=== PATIENT | male | born 1950 | race Caucasian/White ===

== ENCOUNTER 2023-09-24 09:18 | Inpatient (IN) | payer MEDICARE, OTHER ==
[~2023-09-24] VITALS: Ht 167.6 cm; Wt 72.3 kg
[2023-09-24] VITALS (11 sets, daily range): BP systolic 90–117; BP diastolic 44–88
[~2023-09-24 09:18] MED LIST: NICOTINE PATCH1 EAC1 TD; TERBINAFINE15 GM TOP
[2023-09-24] MEDS ORDERED: ALBUTEROL SULFATE 0.5% 2.5 MG/0.5 ML VIAL INH ONE (09:30)
[2023-09-24 09:46] LABS: BASOPHILS 0.3 % (0-2); HEMATOCRIT 45.2 % (35.0-50.0); HEMOGLOBIN 15.2 g/dL (12.0-18.0); LYMPHOCYTES 6.7 % (24-44); MCH 31.3 (27-36); MCHC 33.5 g/dl (30-36); MCV 93.4 fl (81-99); MONOCYTES 5.3 % (0-12); NEUTROPHILS 87.7 % (39-80); PLATELET COUNT 149 K/uL (140-440); RBC 4.84 M/ul (4.3-5.7); RDW 13.5 (10.5-15.0)
[2023-09-24 10:07] LABS: ALBUMIN 2.9 g/dL (3.4-5.0); ALBUMIN/GLOBULIN RATIO 0.76 (1.1-2.4); ANION GAP 15.3 (7-21); BILIRUBIN, TOTAL 0.5 ng/dL (0.2-1.0); CALCIUM 8.6 mg/dL (8.5-10.1); CREATININE, SERUM 1.1 mg/dL (0.70-1.30); POTASSIUM 3.3 mmol/L (3.5-5.1); PROTEIN, TOTAL 6.7 g/dL (6.4-8.2)
[2023-09-24 10:25] LABS: INFLUENZA B NAA NEGATIVE (NEGATIVE); RESPIRATORY SYNCYTIAL VIR NAA NEGATIVE (NEGATIVE)
[2023-09-24] MEDS ORDERED: NICOTINE 14 MG/24 HR 1 EA TDSY TD ONE (10:30)
[2023-09-24] MEDS ORDERED: methylPREDNISolone SOD SUCC 125 MG/2 ML VIAL IV ONE (11:00)
[2023-09-24] MEDS ORDERED: OSELTAMIVIR PHOSPHATE 75 MG CAP PO ONE (13:00)
[2023-09-24] MEDS ORDERED: ENOXAPARIN SODIUM 40 MG/0.4 ML SYR SUB-Q SCH (14:04)
--- NOTE | 2023-09-24 14:34 | NUR ---
PT TRANFERED TO CCU VIA STRETCHER ON 2L NC. PT AMBULATED INDEPENDENTLY FROM STRETCHER TO BED, RT IN ROOM PLACED PT ON VAPOTHERM AT 30L AND 30%. PT PLACED ON MONITOR. O2 SAT 96%. RR 30. WHEEZES HEARD THROUGHOUT BILATERAL LUNGS. PT STATES HE DOES NOT HAVE PRIMARY CARE OR PRESCRIBED MEDICATIONS. STATES HE IS FREQUENTLY SOB WITH DIFFICULTY WITH ADLS AT TIMES. PT ORIENTED TO ROOM AND CALL LIGHT, VERABLIZED UNDERSTANDING. PT DENIES FURTHER NEEDS AT THIS TIME. CALL LIGHT IN REACH.
[2023-09-24] MEDS ORDERED: ACETAMINOPHEN 325 MG TAB PO PRN (14:45)
[2023-09-24] MEDS ORDERED: ALBUTEROL SULFATE 0.083% 3 ML VIAL INH PRN (14:45)
--- NOTE | 2023-09-24 15:50 | NUR ---
PT SITTING UP IN BED, RR 22, REMAINS ON VAPOTHERM 30 AND 30%. PT DENIES NEEDS AT THIS TIME. CALL LIGHT IN REACH.
[2023-09-24] MEDS ORDERED: ALBUTEROL/IPRATROPIUM 3 ML NEB INH SCH (16:00)
--- NOTE | 2023-09-24 17:07 | NUR ---
PT RR 47, PT WORK OF BREATHING APPEARS INCREASED, RT CALLED, INSTRUCTED RN TO INCREASE VAPOTHERM TO 35L/MIN. LITER FLOW INCREASED.
--- NOTE | 2023-09-24 17:19 | NUR ---
RR CONTINUES 45, WORK OF BREATHING LABORED. RT INSTRUCTED THIS RN TO INCREASED LITER FLOW TO 40L/MIN. LITER FLOW INCREASED.
--- NOTE | 2023-09-24 17:40 | NUR ---
DR LOU IN ROOM TO SEE PATIENT AND DISCUSS PLAN OF CARE WITH PATIENT, THIS RN AND ROSLYN RN. DISCUSSION AND EDUCATION PROVIDED TO PT FOR BIPAP. PT AGREEABLE TO BIPAP. ALSO SPOKE WITH DR LOU REAGARDING REQUEST FOR LABS INCLUDING ABG AND MAG, VERBAL ORDERS GIVEN. ORDERS GIVEN FOR 40 MEQ OF POTASSIUM REPLACEMENT AND IV FLUIDS, SEE ORDERS. INFORMED DR LOU OF NO URINE OUTPUT BETWEEN ER AND CCU, DR LOU ACKNOWLEDGED WITH NO FURTHER ORDERS AT THIS TIME.
--- NOTE | 2023-09-24 18:15 | NUR ---
BLADDER SCAN OF 135ML
[2023-09-24] MEDS ORDERED: POTASSIUM CHLORIDE 10 MEQ/100 ML BAG IV ONE (18:30)
[2023-09-24] MEDS ORDERED: SODIUM CHLORIDE 0.9% 1,000 ML IV SCH (18:45)
[2023-09-24 18:50] LABS: MAGNESIUM 1.4 mg/dL (1.8-2.4); PHOSPHORUS, INORGANIC 3.2 mg/dL (2.5-4.9)
--- NOTE | 2023-09-24 19:58 | NUR ---
SBAR REPORT RECEIVED FROM AMANDA MESSINA. PATIENT KAI IS NOTED TO BE CALM AND COOPERATIVE. HE ENDORSES COMFORT ON BIPAP MACHINE. POTASSIUM REPLACEMENT BAG 1:2 CURRENTLY INFUSING. VSS AND WDL PER MONITOR. SAFETY CHECK PERFORMED.
--- NOTE | 2023-09-24 20:22 | NUR ---
PATIENT KAI NOW ON VAPOTHERM 30L/ 25% AND ENDORSES COMFORT. HE IS ABLE TO SWALLOW PILLS WHOLE WITH WATER. VASCULAR ACCESS PATENT AND INTACT. HE IS NOTED TO BE TREMULOUS IN HIS UPPER EXTREMITIES WHICH PATIENT STATES IS UNUSUAL. MED EDUCATION PROVIDED
--- NOTE | 2023-09-24 20:34 | NUR ---
DISCUSSED PATIENT LAB FINDINGS WITH . ORDERED RECEIVED FOR MAG REPLACEMENT. VERIFIED VIA REPEAT BACK.
[2023-09-24] MEDS ORDERED: MAGNESIUM SULFATE 2 GM/50 ML BAG IV ONE (20:45)
[2023-09-24] MEDS ORDERED: OSELTAMIVIR PHOSPHATE 75 MG CAP PO SCH (21:00)
[2023-09-24] MEDS ORDERED: MELATONIN 3 MG TAB PO PRN (21:00)
[2023-09-24] MEDS ORDERED: methylPREDNISolone SOD SUCC 40 MG/ML VIAL IV SCH (21:00)
[2023-09-24] MEDS ORDERED: SENNOSIDES/DOCUSATE 1 EA TAB PO SCH (21:00)
--- NOTE | 2023-09-24 23:00 | EKG ---
[facility] [address] [facility] [place], [place] [address] Signed Sinus tachycardia Nonspecific ST abnormality Confirmed by Sarabjit Lou M.D. ([id number]) on 09/24/2023 11:00:09 PM Electronically Signed By: SARABJIT LOU MD 09/24/23 2300 PATIENT NAME: KAT QUINN Electrocardiogram DATE OF : 50 PHYSICIAN: SARABJIT LOU MD REPORT #: [id number] REPORT IS CONFIDENTIAL AND NOT TO BE RELEASED WITHOUT AUTHORIZATION
[2023-09-24] MEDS ORDERED: AZITHROMYCIN 500 MG in DEXTROSE 5% 250 ML IV SCH (23:15)
[2023-09-25] VITALS (20 sets, daily range): BP systolic 93–136; BP diastolic 44–72
[2023-09-25] MEDS ORDERED: AZITHROMYCIN 500 MG VIAL ONE (00:30)
--- NOTE | 2023-09-25 02:18 | NUR ---
TRIAL OFF HFNC ON RA 90 TO 91%, WE WILL TRIAL 2 LPM AND IS CURRENTLY 94%. Q2 TREATMENT DONE SO FAR THIS SHIFT.
--- NOTE | 2023-09-25 03:55 | NUR ---
PATIENT KAT REMAINS PLEASANT AND COOPERATIVE. 02 93% ON NASAL CANNULA. HE DENIES ANY PAIN, NEEDS, OR DESIRES AT THIS TIME. KAT HAS BEEN INTERMITTENTLY RESTING THIS EVENING.
--- NOTE | 2023-09-25 03:57 | NUR ---
NC ON SIDE OF FACE AND HE WAS 89 TO 90%. REPLACED O2 AT 2 LPM AND IS NOW 95%.
--- NOTE | 2023-09-25 05:40 | NUR ---
BIPAP REMAINS IN USE. 05/03, BACKUP RATE 14, 35%. RR HAVE BEEN NOTED TO STAY BETWEEN 12-18. RASS -1, ABLE TO NOD YES/NO TO ORIENTATION QUESTIONS. RT UPDATED
[2023-09-25 05:47] LABS: HEMATOCRIT 41.4 % (35.0-50.0); HEMOGLOBIN 13.6 g/dL (12.0-18.0); MCH 30.8 (27-36); MCHC 32.8 g/dl (30-36); MCV 93.8 fl (81-99); PLATELET COUNT 160 K/uL (140-440); RBC 4.42 M/ul (4.3-5.7); RDW 14.2 (10.5-15.0)
[2023-09-25 05:59] LABS: ANION GAP 13.2 (7-21); BANDS, MANUAL DIFF 33; BUN/CREATININE RATIO 18.03 (6.0-28.6); CALCIUM 8.4 mg/dL (8.5-10.1); CREATININE, SERUM 1.22 mg/dL (0.70-1.30); LYMPHOCYTES, MANUAL DIFF 9; MONOCYTES, MANUAL DIFF 1; NEUTROPHILS, MANUAL DIFF 57; POTASSIUM 3.2 mmol/L (3.5-5.1)
--- NOTE | 2023-09-25 07:30 | NUR ---
REPORT RECEIVED AND CARE ASSUMED FROM AMANDA MACKEY. PT VSS PER CONTINUOUS MONITOR.
[2023-09-25] MEDS ORDERED: POTASSIUM CHLORIDE 20 MEQ/15 ML CUP PO SCH (08:00)
--- NOTE | 2023-09-25 08:00 | NUR ---
SHIFT ASSESSMENT COMPLETE. SEE [facility] FOR DETAILS. PT CONSUMED 25% OF BREAKFAST. PT OFFERED AND DECLINED ADDITIONAL FOOD OPTIONS. PT ASSISTED TO AND FROM THE BATHROOM WITH RN ASSIST ON 2L NC. WHEN RETURN TO BED COMPLETE PT COMPLAINT OF SOB AND TIREDNESS. PT O2 SAT 89% ON 2L NC. O2 INCREASED TO 3L NC. PT SAT INCREASED TO 97%. PT RR 18. NO RESP DISTRESS VISUALIZED. PT PLACED BACK ON 2L NC. PT SAT REMAINS >94%. PT REQUESTED AND PROVIDED NEW URINAL. SMALL, CONTINENT BM NOTED. PT DENIES ADITIONAL NEEDS AT THIS TIME. CALL LIGHT IN REACH. PT VERBALIZES UNDERSTANDING TO USE CALL LIGHT WITH NEEDS. BED IN LOW, LOCKED POSITION WITH BED ALARM ON FOR PT SAFETY.
--- NOTE | 2023-09-25 08:23 | NUR ---
UR CLINCIAL REVIEW 2 [place] RULE FOR [facility] IP 09/24/23 @ 1403 ORDER MATCHES NO AUTH REQUIRED PER MEDICARE DISCHARGE DISPOSITION PENDING. PATIENT REQUIRING BIPAP AND SYMPTOM MANAGEMENT.
[2023-09-25] MEDS ORDERED: NICOTINE 21 MG/24 HR 1 EA TDSY TD SCH (09:00)
--- NOTE | 2023-09-25 09:22 | NUR ---
MED REC COMPLETE
--- NOTE | 2023-09-25 10:16 | NUR ---
PT BROTHER BHAVYA CALLED TO CONFIRM PT ADMISSION. AFTER RECEIVING VERBAL AUTHORIZATION FROM PT TO CONFIRM AND PROVIDE UPDATE, CALLER UPDATED. PT DENIES ADDITIONAL NEEDS. VSS AND NAD NOTED VIA DIRECT OBS, CONTINUOUS MONITOR AND PT STATEMENT.
--- NOTE | 2023-09-25 10:49 | NUR ---
PATIENT ALERT AND ORIENTED, SITTING UP IN BED. DEMOGRAPHICS VERIFIED WITH PATIENT. STATES HE LIVES HOME ALONE IN A SINGLE LEVEL HOUSE. STATES HE USES NO MEDICAL EQUIPMENT AT HOME, HAS NONE. CONTINUES TO DRIVE SELF WITHOUT DIFFICULTY. WORKS WITH [employer] FOR UTILITIES, FOOD, ETC. DENIES FINANCIAL HARDSHIP WITH THEIR HELP. DENIES OTHER NEEDS AT THIS TIME. CALL LIGHT IN REACH. INSTRUCTED TO NOTIFY STAFF IF NEEDS ARISE. VERBALIZES UNDERSTANDING.
--- NOTE | 2023-09-25 11:00 | NUR ---
Chart faxed to clinic to establish PCP care.
[2023-09-25] MEDS ORDERED: PHARMACY RENAL DOSE ADJUSTMENT 1 DOSE MISC PO SCH (12:00)
--- NOTE | 2023-09-25 12:45 | NUR ---
SHIFT ASSESSMENT COMPLETE. SEE [facility] FOR DETAILS. PT DENIES NEEDS AT THIS TIME. PT RESTING IN BED WATCHING TELEVISION. PT LUNCH BROUGHT TO HIM. PT ASKED FOR IT TO BE LEFT STATING "I'M NOT READY FOR IT YET". PT VSS AND NAD NOTED VIA PT STATEMENT, DIRECT OBS AND CONTINUOUS MONITOR. BED INLOW, LOCKED POSITION WITH BED ALARM ON FOR PT SAFETY.
--- NOTE | 2023-09-25 14:01 | NUR ---
ROUNDS. PT DENIED NEEDS AT THIS TIME. LISTENED EMPATHETICALLY; PROVIDED PRAYER.
--- NOTE | 2023-09-25 14:25 | NUR ---
PT REFUSED PO POTASSIUM ORDERED. DR. LOU NOTIFIED. NO ADDITIONAL ORDERS RECEIVED. PT DENIES ADDITIONAL NEEDS. PT WATCHING TELEVISION. RESTING IN BED. VSS AND NAD NOTED VIA DIRECT OBS, PT STATEMENT AND CONTINUOUS MONITOR. BED IN LOW, LOCKED POSITION WITH BED ALARM ON AND CALL LIGHT IN REACH.
--- NOTE | 2023-09-25 14:52 | NUR ---
PATIENT SITTING ON SIDE OF BED, O2 IN PLACE. PATIENT ATE 0% OF HIS LUNCH AND STATES HE'S NOT HUNGRY AT THIS TIME. FRESH WATER PROVIDED. I&OS CHARTED.
--- NOTE | 2023-09-25 16:03 | NUR ---
SHIFT ASSESSMENT COMPLETE. SEE [employer] FOR DETAILS. PT RESTING IN BED WATCHING TELEVISION. PT ALERT & ORIENTED, HOLDING CONVERSATIONS REGARDING THE NEWS ON THE TELEVISION WITHOUT SOB OR NOTED DISTRESS. CALL LIGHT, URINAL AND PERSONAL ITEMS IN REACH. PT VERBALIZES UNDERSTANDING TO USE CALL LIGHT WITH NEEDS. BED IN LOW, LOCKED POSITION WITH BED ALARM ON FOR PT SAFETY. 1L NC IN PLACE WITH O2 SAT>94%.
--- NOTE | 2023-09-25 16:58 | NUR ---
DR LOU IN UNIT FOR PT STATUS UPDATE. ALL QUESTIONS ANSWERED. NO ORDERS RECEIVED.
--- NOTE | 2023-09-25 17:43 | NUR ---
PT DINNER PROVIDED. PT SITTING UP EATING DINNER. PT DENIES NEEDS AT THIS TIME.
--- NOTE | 2023-09-25 18:42 | NUR ---
PT SBA TO BATHROOM AND BACK TO BED WITHOUT INCIDENT. PT O2 FOR NC INCREASED FROM 1L TO 3L FOR DESAT PREVENTION. PT DENIES ADDITIONAL NEEDS AT THIS POINT. PT BED IN LOW, LOCKED POSITION WITH BED ALARM ON FOR PT SAFETY. CALL LIGHT IN REACH. VSS AND NAD NOTED VIA DIRECT OBSERVATION AND CONTINUOUS MONITOR.
--- NOTE | 2023-09-25 19:44 | NUR ---
SBAR REPORT RECEIVED FROM AMANDA RODRIGUES. PATIENT KAI IS FOUND TO BE PLEASANT AND COOPERATIVE. HE WAS UPDATED REGARDING PLAN OF CARE AND IS AGREEABLE TO CARE. VSS AND WDL PER MONITOR. SAFETY CHECK PERFORMED. 2L NC HR 94 134/66 (86) 97.4 96% RR 22
[2023-09-25] MEDS ORDERED: OSELTAMIVIR PHOSPHATE 30 MG CAP PO SCH (21:00)
[2023-09-25] MEDS ORDERED: AZITHROMYCIN 500 MG in DEXTROSE 5% 250 ML IV SCH (21:00)
--- NOTE | 2023-09-25 22:17 | NUR ---
PATIENT KAI DENIES ANY NEEDS AT THIS TIME. DUONEB ADMINISTERED AND PATIENT STATES THAT HE IS FEELING "A LITTE BETTER". HE IS NOTED TO BE WATCHING TV, URINAL, H20, AND PERSONAL BELONGINGS ON BEDSIDE TABLE. VSS AND WDL PER MONITOR
--- NOTE | 2023-09-25 23:16 | NUR ---
PATIENT KAI IS NOTED TO BE RESTING WITH EYES CLOSED. HE APPEARS COMFORTABLE. VSS AND WDL PER MONITOR. NO NEEDS INDENTIFIED AT THIS TIME. HE IS ABLE TO REPOSITION SELF. BEDSIDE TABLE AND PERSONAL BELONGINGS NEAR PATIENT
[2023-09-26] VITALS (9 sets, daily range): BP systolic 99–145; BP diastolic 44–77
--- NOTE | 2023-09-26 00:32 | NUR ---
PATIENT KAI IS RESTING WITH EYES CLOSED THIS HOUR. MAINTENANCE GTT RUNNING. VASCULAR ACCESS IS PATENT AND INTACT. NO NEEDS IDENTIFIED
--- NOTE | 2023-09-26 01:50 | NUR ---
PATIENT KAI IS RESTING WITH EYES CLOSED. HE IS AROUSED TO VERBAL STIMULATION, FOLLOWS COMMANDS, IS ORIENTED X 4. AND DENIES ANY NEES AT THIS TIME
--- NOTE | 2023-09-26 05:05 | NUR ---
PATIENT KAI IS NOTED TO ENDORSE COMFORT AND GIVEN A ALVARO PER PATIENT REQUEST. HE IS WATCHING TV AND STATED THAT HE SLEPT WELL LAST NIGHT. MAINTENANCE GTT AT 125CC PER HOUR. PATIENT CONTINUES TO HAVE A PRODUCTIVE COUGHT AND ON 2L NC
[2023-09-26 05:33] LABS: HEMATOCRIT 41.9 % (35.0-50.0); HEMOGLOBIN 13.8 g/dL (12.0-18.0); PLATELET COUNT 184 K/uL (140-440); RBC 4.45 M/ul (4.3-5.7); RDW 14.1 (10.5-15.0)
--- NOTE | 2023-09-26 05:42 | NUR ---
NEURO- ALERT AND ORIENTED X 4, FOLLOWS COMMANDS, STRENGTH 5/4, FOLLOWS COMMANDS, PERRL, NON-PAINFUL, SBA TO BATHROOM CARDIAC- SA-SR, AFEBRILE, NORMOTENSIVE, NO EDEMA NOTED RESP- 1-2L NC, TACHYPNEA NOTED WITH ACTIVITY, BREATH SOUNDS CLEAR/ DIM, PRODUCTIVE COUGH, THICK YELLOW SPUTUM GI/- REG DIET, POOR APPETITE, NORMOACTIVE BOWEL TONES IN ALL 4 QUADRANTS, PASSING FLATUS, VOIDS APPROPRIATELY IN COMMODE INT- SEE ASSESSMENT MAINTENANCE GTT 125CC PER HOUR. PLAN- POSSIBLE D/C HOME TODAY
[2023-09-26 05:46] LABS: BANDS, MANUAL DIFF 36; LYMPHOCYTES, MANUAL DIFF 4; MONOCYTES, MANUAL DIFF 3; NEUTROPHILS, MANUAL DIFF 57
[2023-09-26 05:48] LABS: ANION GAP 12.1 (7-21); BUN/CREATININE RATIO 22.1 (6.0-28.6); CALCIUM 8.2 mg/dL (8.5-10.1); CREATININE, SERUM 0.95 mg/dL (0.70-1.30); POTASSIUM 4.1 mmol/L (3.5-5.1)
[2023-09-26] MEDS ORDERED: ALBUTEROL/IPRATROPIUM 3 ML NEB INH SCH (08:00)
--- NOTE | 2023-09-26 08:26 | NUR ---
IN PATIENT'S ROOM FOR MORNING ASSESSMENT, VITALS AND BREAKFAST. PT RESTING IN BED UPON INITIAL ASSESSMENT WITH HOWARD TX GOING PER RT. PT IS PLEASANT AND STATES HE IS FEELING MUCH BETTER FROM ARRIVAL TO THE HOSPITAL. PT IS NOTED TO BE SLIGHLTY SHORT OF BREATH WITH MUCH EXERTION OR TALKING, BUT DENIES FEELING THIS WAY. EXP WHEEZING HEARD THROUGHOUT, WITH FINE CRACKLES HEARD OVER LEFT LOWER LUNG BASE AREA. PT REPORTS HE RECENTLY STOPPED SMOKING, SWITCHING FROM PRE ROLLED CIGARETTES TO MOST RECENTLY ONLY SMOKING 6-7 PER DAY OF SELF ROLLED CIGARETTES. PT DENIES EVER BEING DIAGNOSED WITH COPD, BUT STATES HE HASN'T SEEN A PHYSICIAN IN 6-7 YEARS OR SO. IVF CONTINUE AT 125 ML/HR INTO RIGHT HAND. PT UP TO CHAIR FOR BREAKFAST, BUT ONCE LOOKING AT THE MEAL, DENIES WANTING TO EAT ANY OF IT, ONLY REQUESTING BLACK COFFEE. CALL LIGHT WITHIN REACH. PT HAS TALKED ON THE PHONE WITH HIS BROTHER THIS AM. PLAN OF CARE DISCUSSED. PT WAS UNAWARE THAT HE WAS POSITIVE FOR INFLUENZA. BRIEF EDUCATION PROVIDED REGARDING THIS. CALL LIGHT WITHIN REACH AND WILL CONTINUE TO MONITOR.
--- NOTE | 2023-09-26 10:40 | NUR ---
Spoke with Chucho, he plans on dc today. He denies needs. States he is active and chops/stacks his own wood. He uses [employer] for his utilities and the food bank in [place]. He has SS and disability. He plans on dc to home and denies needs. He will contact his brother for a ride. [facility] and we are waiting for a fu appt for this pt. Rn on dc will give pt the Clinics number and let him know to call them if he does not hear from them this week. Home today with family.
--- NOTE | 2023-09-26 11:25 | NUR ---
PATIENT UP AND WORKED WITH PHYS THERAPY AND OCC THERAPY IN ROOM. PT ABLE TO TOLERATE AMBULATING WITHOUT BEING ON OXYGEN, DID HAVE SOME DESATURATIONS, BUT DID NOT LAST VERY LONG. PATIENT NOW RESTING IN CHAIR. PT HOPEFUL TO D/C HOME TODAY. SP02 IS CURRENTLY 94% ON ROOM AIR. RR 20S, EVEN AND UNLABORED.
--- NOTE | 2023-09-26 11:53 | NUR ---
PATIENT CONTINUES TO SIT UP IN CHAIR, WAITING FOR LUNCH. DISCUSSED WITH PATIENT THAT HE IS LIKELY TO D/C HOME TODAY. PT REPORTS HE WILL NEED TO CALL HIS BROTHER FOR A RIDE HOME, BUT PREFERS TO WAIT TO CALL UNTIL HE HAS ACTUAL DISCHARGE ORDERS. ASSESSMENT COMPLETE.
[2023-09-26] MEDS ORDERED: OSELTAMIVIR PHO30 MG PO (13:28)
[2023-09-26] MEDS ORDERED: PREDNISONE10 MG PO (13:31)
[2023-09-26] MEDS ORDERED: BREO ELLIPTA I1 EACH INH (13:33)
[2023-09-26] MEDS ORDERED: COMBIVENT RESPIM4 GM INH (13:35)
--- NOTE | 2023-09-26 13:49 | NUR ---
PATIENT TO BE D/C HOME TODAY. PT CALLING HIS BROTHER IN [place] FOR A RIDE HOME. PT HAS CONTINUED TO HAVE A POOR APPETITE. DISCHARGE PAPERS BEING READIED FOR PATIENT.
--- NOTE | 2023-09-26 15:00 | NUR ---
PATIENT DRESSED IN PERSONAL CLOTHING. D/C VITALS CHARTED, IVS X2 REMOVED. PATIENT WHEELED OUT.
== END 2023-09-26 15:00 | disposition home or self-care (01) | DRG 193 ==
LOC: ED 09:18 → CCU 14:10
PROVIDERS: Emergency Medicine; ADMIT Internal Medicine; ATTEND Internal Medicine
PROC: 5A09357 Assistance with Respiratory Ventilation, Less than 24 Consecutive Hours, Continuous Positive Airway Pressure (ICD-10-PCS; principal; 2023-09-24)
DX: J10.1 Influenza due to other identified influenza virus with other respiratory manifestations (principal); J96.01 Acute respiratory failure with hypoxia; J44.1 Chronic obstructive pulmonary disease with (acute) exacerbation; Z66 Do not resuscitate; F17.210 Nicotine dependence, cigarettes, uncomplicated; Z11.52 Encounter for screening for COVID-19
CPT/HCPCS: 36415; 71045; 80048; 80053; 83735; 83880; 84100; 85025; 87502; 94640; 94660; 94799; 97161; 97166; A9270; J0456; J1650; J2920; J2930; J3475; J3480; J7030; J7060; U0002